=== PATIENT | male | born 1975 | race Caucasian/White ===

== ENCOUNTER 2019-11-22 12:56 | Emergency (ER) | payer OTHER ==
--- NOTE | 2019-11-22 13:40 | ER Document Report ---
ED General - General Chief Complaint: Chest Pain Stated Complaint: FEVER,NAUSEA Time Seen by Provider: 11/22/19 13:21 Primary Care Provider: NIKKO CRUZ MD [HONORARY] - Follow up in 1 month Mode of Arrival: Ambulatory Information source: Patient Notes: This 44-year-old male patient comes emergency room for evaluation of possible COVID symptoms. He reports his girlfriend tested positive last week, he was tested on 11/15/2019 and was negative. The following day he developed a sore throat. He reports that yesterday he developed fever and chills. He went back to the clinic today and his rapid COVID test was positive. He states he has had a little bit of a cough. He states this morning he had a little bit of left anterior chest pain and has also been having pains go down the left arm that will come and go. The arm pains are not related to the chest pains, but reports that the arm pains get quite severe but do not last very long. At the clinic today his blood pressure was 180/110 and they gave him a dose of clonidine and aspirin. He does not normally have elevated blood pressure. He is not short of breath. The patient reports that he takes Cosentyx for psoriatic arthritis. His last dose was 3 weeks ago, he is due to get his next dose next Wednesday 1 week from today. He does note that the itching of his legs has gone away, this will frequently occur when he gets sick with any sort of illness. - Related Data Allergies/Adverse Reactions: No Known Allergies Allergy (Verified 11/28/19 19:46) Past Medical History - General Information source: Patient - Social History Smoking Status: Former Smoker - Quit in March 2018. Cigarette use (# per day): No Chew tobacco use (# tins/day): No Smoking Education Provided: No Frequency of alcohol use: None Drug Abuse: None Occupation: Drives a truck for the [employer] Lives with: Spouse/Significant other - Lives with his girlfriend. Family History: Reviewed & Not Pertinent - Medical History Medical History: Other - Psoriatic arthritis Surgical Hx: Negative Review of Systems - Review of Systems Constitutional: Chills, Fever EENT: No symptoms reported Cardiovascular: See HPI, Chest pain Respiratory: See HPI, Cough Gastrointestinal: No symptoms reported Genitourinary: No symptoms reported Musculoskeletal: No symptoms reported Skin: No symptoms reported Hematologic/Lymphatic: No symptoms reported Neurological/Psychological: See HPI Physical Exam - Vital signs Vitals: Temp Pulse Resp BP Pulse Ox 99.1 F 107 H 16 150/103 H 99 11/22/19 13:13 11/22/19 13:13 11/22/19 13:13 11/22/19 13:13 11/22/19 13:13 Interpretation: Hypertensive, Febrile - General General appearance: Appears well, Alert In distress: None - HEENT Head: Normocephalic, Atraumatic Eyes: Normal Pupils: PERRL Neck: Normal - Respiratory Respiratory status: No respiratory distress Breath sounds: Normal - Cardiovascular Rhythm: Regular Heart sounds: Normal auscultation Murmur: No - Abdominal Inspection: Obese Distension: No distension Bowel sounds: Normal Tenderness: Nontender - Back Back: Normal - Extremities General upper extremity: Other - Psoriatic plaques on his proximal ulnar forearms General lower extremity: Normal inspection - Patient has his pants on, but has normal range of motion and no tenderness. - Neurological Neuro grossly intact: Yes - Psychological Associated symptoms: Normal affect, Normal mood - Skin Skin Temperature: Warm Skin Moisture: Dry Skin Color: Normal Notes: Patient does have psoriatic changes on the extensor surfaces of his proximal forearms. Course - Re-evaluation Re-evalutation: 11/22/19 16:58 The patient was evaluated during the global COVID-19 pandemic and that diagnosis was suspected/considered upon their initial presentation. Their evaluation, treatment and testing was consistent with current guidelines for patients who present with complaints or symptoms that may be related to COVID-19. 11/22/19 17:15 The patient began complaining of severe left arm pain again. It pain is to his medial arm from the axilla region down to the elbow. He was able to find that by lifting his arm above his head the pain would go away. I suspect that this may be a cervical radiculopathy. The patient's blood pressure is in the 145-150 range, he states that he may not have had his blood pressure checked in several years so he does not know if he could be hypertensive at this time. Given that he is most likely COVID positiv e, symptomatic, and running very high blood pressure this morning, I am going to prescribe a low-dose beta-andre for now. He will be unable to follow-up with primary care provider for at least 2 weeks or until he has recovered from this COVID infection. He is instructed to get a blood pressure cuff to check his blood pressures at home. - Vital Signs Vital signs: Temp Pulse Resp BP Pulse Ox 99.4 F 88 20 144/77 H 99 11/22/19 16:03 11/22/19 16:03 11/22/19 16:03 11/22/19 16:03 11/22/19 16:03 - Laboratory Result Diagrams: 11/22/19 13:30 11/22/19 13:30 Laboratory results interpreted by me: 11/22/19 11/22/19 11/22/19 13:30 13:30 16:55 RDW 14.2 H [place] % (Auto) 13.6 H Glucose 122 H Urine Protein 100 H Urine Urobilinogen 4.0 H Urine Ascorbic Acid 40 H - Diagnostic Test Radiology reviewed: Image reviewed, Reports reviewed - Chest x-ray does not show acute radiographic changes. - EKG Interpretation by Hi EKG shows normal: Sinus rhythm, [place], Intervals, QRS Complexes. abnormal: ST-T Waves - Diffuse T wave abnormalities suggesting ischemic changes. Rate: Normal - 94 Rhythm: NSR P Waves: LAE When compared to previous EKG there are: Previous EKG unavailable Additional EKG results interpreted by me: 11/22/19 16:56 Initial EKG suggested ischemic changes with diffuse abnormal T wave abnormalities. Repeat EKG done 2-1/2 hours later shows similar anterior and lateral leads T wave abnormalities. Serial troponin on the patient were negative. D-dimer was not elevated. Discharge - Discharge Clinical Impression: COVID-19, Viral syndrome, Cervical radiculopathy, High blood pressure Condition: Stable Disposition: HOME, SELF-CARE Instructions: COVID-19 Guidance for Persons Under Investigation Additional Instructions: Viral Syndrome(most likely COVID-19 virus): The physician has diagnosed a viral infection. Viruses not only cause "colds," but can cause many different symptoms including generalized aching, fever, headache, cough, diarrhea, nausea, vomiting, and fatigue. The treatment, for the most part, is simply relief of symptoms. This means that antibiotics are usually not given. Rest, fluids, pain medications and, occasionally, medication for the specific symptoms that are most bothersome will be prescribed. Use good handwashing to avoid passing the virus to others. Shared toys should be cleaned with disinfectant. Clean the toilets, sinks, and counter surfaces in bathrooms. Launder clothing in hot water. Contact the physician if you develop any new or unusual symptoms such as severe headache, stiff neck, high fever, chest pain, productive cough, or shortness of breath. You should be rechecked if you don't see marked improvement within seven to 10 days. Cervical Radiculopathy: Radiculopathy is irritation of a nerve. Sometimes this is called "pinched nerve." The pain can be sharp and stabbing, constant and dull, or burning in nature. The pain can occur in any area of the chest, shoulders, or arms. Sometimes the pain is provoked by coughing or moving. Radiculopathy can be caused by physical pressure on a nerve, such as a herniated disc or swollen joint in the spine. It can also be caused by viral infections within the nerve or by nerve damage due to diabetes or blood vessel disease. Radicular pain is treated with antiinflammatory medicine. Injections may help resistant cases, if we can identify a single nerve that's causing the pain. Surgery is usually not necessary. If symptoms do not improve with time, you may need additional testing, such as an MRI or EMG (electromyogram). Return if there is local weakness or numbness, shortness of breath, increasing pain, or other new symptoms. High Blood Pressure: When your blood pressure was taken today it was elevated. Pre-hypertension/Hypertension: The patient has been informed that they may have pre-hypertension or Hypertension based on a blood pressure reading in the emergency department. I recommend that the patient call the primary care provider listed on their discharge instructions or a physician of their choice this week to arrange follow up for further evaluation of possible pre-hypertens ion or Hypertension. Sometimes, stress or illness causes a temporary elevation of your blood press ure. We suggest that you get your blood pressure measured three more times during the next few days to see if this is more than a temporary abnormality. If your blood pressure is greater than 150/90 on each occasion, you must have treatment. Some simple things you can do to help are: If you have blood pressure medicine but aren't using it regularly, start taking it again. Get some aerobic exercise for at least 20 minutes on a daily basis. (See your doctor before beginning a new exercise program.) Eat a low-fat diet. Lose excess weight. Avoid salty foods and avoid adding salt to any of the foods you eat. Avoid diet pills, decongestants, "energizing" herbs, and other medicines that elevate blood pressure. If left untreated, hypertension greatly enhances your risk for developing heart disease and strokes. Please don't ignore this problem. We will start you on a blood pressure medication today, as your blood pressure had gotten quite high today, and it would not be practical to follow-up with anyone within the next 2 weeks for of your blood pressure. Your arm pain is most likely due to pinched nerves in your neck. Avoid extending your neck as that likely will make the pain worse. If you notice the pain coming on try bending your neck forward and putting her chin on your chest to see if that will ease the discomfort, otherwise lift her arm up in the air as you are doing here for relief. Your positive COVID test today was most likely accurate. You should quarantine at home for the next 2 weeks, then get repeat testing until you have tested negative. Follow-up with a primary care provider in a few weeks to recheck your blood pressure and determine if you should stay on blood pressure medication. You can also see your primary care provider about the pain in your arm if that continues to be a problem. RETURN TO THE EMERGENCY ROOM IF ANY NEW OR WORSENING SYMPTOMS. Prescriptions: Atenolol [Tenormin] 25 mg PO BID #60 tablet Referrals: NIKKO CRUZ MD [HONORARY] - Follow up in 1 month
[2019-11-22 14:01] LABS: BASOPHILS % (AUTO) 0.4 % (0-2); EOSINOPHILS % (AUTO) 0.6 % (0-6); HEMATOCRIT 45.6 % (37.9-51.0); HEMOGLOBIN 15.7 g/dL (13.5-17.0); LYMPHOCYTES % (AUTO) 28.7 % (13-45); MEAN CORPUSCULAR HEMOGLOBIN 28.4 pg (27.0-33.4); MEAN CORPUSCULAR HGB CONC 34.3 g/dL (32.0-36.0); MEAN CORPUSCULAR VOLUME 83 fl (80-97); MONOCYTES % (AUTO) 13.6 % (3-13); PLATELET COUNT 296 10^3/uL (150-450); RED BLOOD COUNT 5.51 10^6/uL (4.35-5.55); RED CELL DISTRIBUTION WIDTH 14.2 % (11.5-14.0); SEGMENTED NEUTROPHILS % (AUTO) 56.7 % (42-78); TOTAL CELLS COUNTED % (AUTO) 100 %; WHITE BLOOD COUNT 7.1 10^3/uL (4.0-10.5)
[2019-11-22 14:10] LABS: ALBUMIN 4.2 g/dL (3.5-5.0); ALKALINE PHOSPHATASE 71 U/L (38-126); ANION GAP 9 (5-19); ASPARTATE AMINO TRANSFERASE 33 U/L (17-59); BILIRUBIN,TOTAL 0.7 mg/dL (0.2-1.3); BLOOD UREA NITROGEN 11 mg/dL (7-20); CALCIUM 8.6 mg/dL (8.4-10.2); CARBON DIOXIDE 24 mmol/L (22-30); CHLORIDE 105 mmol/L (98-107); CREATINE KINASE 134 U/L (55-170); GLUCOSE 122 mg/dL (75-110); POTASSIUM 4.5 mmol/L (3.6-5.0); TOTAL PROTEIN 7.7 g/dL (6.3-8.2)
--- NOTE | 2019-11-22 14:25 | RADIOLOGY REPORT (SQ) ---
EXAM DESCRIPTION: CHEST SINGLE VIEW IMAGES COMPLETED DATE/TIME: 11/22/2019 1:08 pm REASON FOR STUDY: COVID + patient w/ mild cough and chest pain COMPARISON: None. EXAM PARAMETERS: NUMBER OF VIEWS: One view. TECHNIQUE: Single frontal radiographic view of the chest acquired. RADIATION DOSE: NA LIMITATIONS: None. FINDINGS: LUNGS AND PLEURA: No opacities, masses or pneumothorax. No pleural effusion. MEDIASTINUM AND HILAR STRUCTURES: No masses. Contour normal. HEART AND VASCULAR STRUCTURES: Heart normal in size. Normal vasculature. BONES: No acute findings. HARDWARE: None in the chest. OTHER: No other significant finding. IMPRESSION: NO ACUTE RADIOGRAPHIC FINDING IN THE CHEST. TECHNICAL DOCUMENTATION: JOB ID: [id number] 2010 [employer]- All Rights Reserved Reading location - IP/workstation name: [email or web address]
[2019-11-22 16:04] VITALS: BP 144/77
[2019-11-22 16:48] LABS: CREATINE KINASE MB 0.6 ng/mL (<4.55); TROPONIN I 0.013 ng/mL
[2019-11-22 17:17] LABS: APPEARANCE,URINE SLIGHTLY-CLOUDY; BILIRUBIN,URINE NEGATIVE (NEGATIVE); COLOR,URINE AMBER; GLUCOSE, URINE NEGATIVE (NEGATIVE); KETONES,URINE NEGATIVE (NEGATIVE); LEUKOCYTE ESTERASE,URINE NEGATIVE (NEGATIVE); NITRITE,URINE NEGATIVE (NEGATIVE); PROTEIN,URINE 100 mg/dL (NEGATIVE); URINE SPECIFIC GRAVITY 1.036
--- NOTE | 2019-11-23 09:42 | EKG REPORT ---
SEVERITY:- ABNORMAL ECG - SINUS RHYTHM PROBABLE LEFT ATRIAL ABNORMALITY CONSIDER ANTEROSEPTAL INFARCT ABNORMAL T, CONSIDER ISCHEMIA, DIFFUSE LEADS : Confirmed by: Adebayo Glover 23-Nov-2019 09:41:52
--- NOTE | 2019-11-23 09:42 | EKG REPORT ---
SEVERITY:- ABNORMAL ECG - SINUS RHYTHM ABNORMAL T, CONSIDER ISCHEMIA, LATERAL LEADS : Confirmed by: Adebayo Glover 23-Nov-2019 09:41:47
== END 2019-11-22 17:37 | disposition home or self-care (01) ==
LOC: ER 12:56
DX: U07.1 COVID-19 (principal); M54.12 Radiculopathy, cervical region; I10 Essential (primary) hypertension; R94.31 Abnormal electrocardiogram [ECG] [EKG]; R05 Cough; R50.9 Fever, unspecified; R07.9 Chest pain, unspecified; M79.602 Pain in left arm; L40.50 Arthropathic psoriasis, unspecified; Z79.899 Other long term (current) drug therapy; Z87.891 Personal history of nicotine dependence
CPT/HCPCS: 36415; 71045; 80053; 81001; 82550; 82553; 82728; 84484; 85025; 85379; 93005; 93010; 99285

== ENCOUNTER 2019-11-28 16:28 | Inpatient (IN) | payer OTHER ==
--- NOTE | 2019-11-28 17:39 | RADIOLOGY REPORT (SQ) ---
EXAM DESCRIPTION: CHEST SINGLE VIEW IMAGES COMPLETED DATE/TIME: 11/28/2019 5:27 pm REASON FOR STUDY: cough, covid + COMPARISON: 11/22/2019 EXAM PARAMETERS: NUMBER OF VIEWS: One view. TECHNIQUE: Single frontal radiographic view of the chest acquired. RADIATION DOSE: NA LIMITATIONS: None. FINDINGS: LUNGS AND PLEURA: The patient has a known history of COVID-19 disease. There are perihil ar ground-glass attenuated opacities more so on the left. These findings may be consistent with infi ltrates. No pneumothorax or pleural effusion. MEDIASTINUM AND HILAR STRUCTURES: Fullness in the mediastinal region more so on the right may be on the basis of lymphadenopathy. HEART AND VASCULAR STRUCTURES: Cardiomegaly. Normal vasculature. BONES: No acute findings. HARDWARE: None in the chest. OTHER: No other significant finding. IMPRESSION: 1. Bilateral perihilar ground-glass attenuated opacities, more so on the left may repre sent pneumonia consistent with the patient's known history of COVID 19 disease. These findings have developed since the prior examination dated 11/22/2019. 2. Fullness in the mediastinal region, more so on the right, may be on the basis of lymphadenopathy. 3. Cardiomegaly, stable finding. TECHNICAL DOCUMENTATION: JOB ID: [id number] 2010 [employer]- All Rights Reserved Reading location - IP/workstation name: [email or web address]
[2019-11-28] MEDS ORDERED: CEFTRIAXONE INJ 1000 MG VIAL IV ONE (17:53)
[2019-11-28] MEDS ORDERED: AZITHROMYCIN INJ 500 MG VIAL IV ONE (17:53)
[2019-11-28] MEDS ORDERED: DEXAMETHASONE SOD PHOS INJ 10 MG/1 ML VIAL IV ONE (17:54)
--- NOTE | 2019-11-28 17:58 | ER Document Report ---
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 His condition was stable at that time and he was sent out with a pending COVID nasal swab. This was subsequently reported as positive. He now returns today noting that over the past 2 to 3 days he is increasingly short of breath, intermittently coughing with no production of sputum and having some wheezing, nausea without vomiting, loss of appetite and myalgias. He reports intermittent subjective low-grade fever. Patient has a history of psoriatic arthritis. He is recently had some intermitt ent elevation of his blood pressure and had been advised to start a beta-andre but has failed to do so. Patient has quit smoking within the last 6 months. - Related Data Allergies/Adverse Reactions: No Known Allergies Allergy (Verified 11/22/19 14:01) Past Medical History - General Information source: Patient, [facility] Records - Social History Smoking Status: Former Smoker Chew tobacco use (# tins/day): No Drug Abuse: None Lives with: Family Family History: Reviewed & Not Pertinent Patient has homicidal ideation: No Musculoskeletal Medical History: Reports Hx Arthritis Surgical Hx: Negative Review of Systems - Review of Systems Notes: Constitutional: As per HPI. HENT: Negative for sore throat. Denies change in sense of taste or smell. Eyes: Negative for visual changes. Cardiovascular: Burning in chest when he coughs. Respiratory: As per HPI. Gastrointestinal: Anorexia. Nausea without vomiting or diarrhea. Genitourinary: Negative for dysuria. Musculoskeletal: Mild diffuse myalgias. Skin: Negative for rash. Neurological: Negative for headaches, focal weakness or numbness. 10 point ROS negative except as marked above and in HPI. Physical Exam - Vital signs Vitals: Resp BP Pulse Ox 14 139/83 H 95 11/28/19 16:28 11/28/19 16:28 11/28/19 16:28 - Notes Notes: GENERAL: Mildly obese middle-age male who is coughing and appears mildly dyspneic. SKIN: Mildly diaphoretic. Good turgor no rashes. HEAD: Normocephalic atraumatic. EYES: PERRLA. EOMI. Conjunctivae and sclerae clear. EARS: CANALS AND TMS CLEAR. NOSE: CLEAR. MOUTH: Moist mucosa. Good dentition. No stridor or edema. No drooling. NECK: Supple. No masses or thyromegaly. No adenopathy. Carotids 2+ without bruits. No JVD. BACK: Symmetrical without tenderness. CHEST: Mildly tachypneic with rattling cough and scattered faint wheezes and rhonchi bilaterally. O2 saturation 92% on room air. HEART: Regular rhythm. No murmur gallop or rub. ABDOMEN: Soft nontender without masses, organomegaly or rebound. Bowel sounds normally active. No bruits. GENITALIA: Deferred. EXTREMITIES: No edema. No calf tenderness. Cap refill less than 1.5 seconds. Dorsalis pedis and posterior tibial pulses 3+ and symmetrical. NEUROLOGICAL: GCS 15. Alert and oriented x3. Fluent speech. Cranial nerves II through XII intact. Sensorimotor and cerebellar normal. Normal tone. PSYCHIATRIC: Appropriate affect. Course - Re-evaluation Re-evalutation: 11/28/19 18:02 Labs are pending. Patient is now comfortable on 2 L of nasal O2. He presumably has COVID pneumonia. We are going to go ahead and provide coverage for communit y-acquired pneumonia with IV Rocephin and azithromycin. I have also started him on IV Decadron. We will present him to the hospitalist for admission to the inpatient service on low-flow supplemental oxygen. - Vital Signs Vital signs: Temp Pulse Resp BP Pulse Ox 99.1 F 80 23 H 137/73 H 94 11/28/19 16:35 11/28/19 16:35 11/28/19 16:35 11/28/19 16:35 11/28/19 16:35 - Laboratory Result Diagrams: 11/28/19 16:10 11/28/19 16:10 Laboratory results interpreted by me: 11/28/19 11/28/19 11/28/19 16:10 16:10 16:10 Hgb 13.4 L RDW 14.4 H D-Dimer 0.85 H Sodium 136.7 L - Diagnostic Test Radiology reviewed: Reports reviewed - Patchy groundglass infiltrates bilaterally with some mediastinal fullness consistent with adenopathy. Discharge - Discharge Clinical Impression: COVID-19 Pneumonia Qualifiers: Pneumonia type: due to unspecified organism Laterality: bilateral Lung location: unspecified part of lung Qualified Code(s): J18.9 - Pneumonia, unspecified organism Condition: Good Disposition: ADMITTED INPATIENT Admitting Provider: Flavia (Hospitalist) Unit Admitted: Medical Floor
[2019-11-28 18:04] LABS: ALBUMIN 3.8 g/dL (3.5-5.0); ALKALINE PHOSPHATASE 60 U/L (38-126); ANION GAP 9 (5-19); ASPARTATE AMINO TRANSFERASE 48 U/L (17-59); BILIRUBIN,DIRECT 0.4 mg/dL (0.0-0.4); BILIRUBIN,TOTAL 0.6 mg/dL (0.2-1.3); BLOOD UREA NITROGEN 8 mg/dL (7-20); CALCIUM 8.6 mg/dL (8.4-10.2); CARBON DIOXIDE 26 mmol/L (22-30); CHLORIDE 102 mmol/L (98-107); GLUCOSE 109 mg/dL (75-110); POTASSIUM 3.8 mmol/L (3.6-5.0)
[2019-11-28 18:13] LABS: ABSOLUTE LYMPHOCYTES (AUTO) 2.1 10^3/uL (0.5-4.7); ABSOLUTE MONOCYTES (AUTO) 0.5 10^3/uL (0.1-1.4); ABSOLUTE NEUT (AUTO) 3.2 10^3/uL (1.7-8.2); BASOPHILS % (AUTO) 0.3 % (0-2); EOSINOPHILS % (AUTO) 0.8 % (0-6); HEMOGLOBIN 13.4 g/dL (13.5-17.0); LYMPHOCYTES % (AUTO) 35.8 % (13-45); MEAN CORPUSCULAR HEMOGLOBIN 28.7 pg (27.0-33.4); MEAN CORPUSCULAR HGB CONC 34.5 g/dL (32.0-36.0); MEAN CORPUSCULAR VOLUME 83 fl (80-97); MONOCYTES % (AUTO) 8.7 % (3-13); PLATELET COUNT 369 10^3/uL (150-450); RED BLOOD COUNT 4.68 10^6/uL (4.35-5.55); RED CELL DISTRIBUTION WIDTH 14.4 % (11.5-14.0); SEGMENTED NEUTROPHILS % (AUTO) 54.4 % (42-78); TOTAL CELLS COUNTED % (AUTO) 100 %; WHITE BLOOD COUNT 5.9 10^3/uL (4.0-10.5)
[2019-11-28] MEDS ORDERED: MAGNESIUM HYDROXIDE SUSP 30 ML UDCUP PO PRN (19:39)
[2019-11-28] MEDS ORDERED: IPRATROPIUM/ALBUTEROL 0.5-2.5 MG/3 ML AMPUL NEB PRN (19:39)
[2019-11-28] MEDS ORDERED: ACETAMINOPHEN 325 MG TABLET PO PRN (19:39)
[2019-11-28] MEDS ORDERED: ONDANSETRON HCL INJ/PF 4 MG/2 ML SDV IV PRN (19:39)
[2019-11-28] MEDS ORDERED: PROMETHAZINE HCL INJ 25 MG/1 ML VIAL IV PRN (19:39)
[2019-11-28] MEDS ORDERED: OXYCODONE-ACETAMINOPHEN 5-325 MG TABLET PO PRN (19:39)
[2019-11-28] MEDS ORDERED: HYDRALAZINE HCL INJ/PF 20 MG/1 ML SDV IV PRN (19:51)
[2019-11-28] MEDS ORDERED: METOPROLOL TARTRATE PF/INJ 5 MG/5 ML SDV IV PRN (19:51)
[2019-11-28] MEDS ORDERED: MORPHINE SULFATE 10 MG/ML INJ IV PRN (19:52)
[2019-11-28] MEDS ORDERED: DEXAMETHASONE SOD PHOSPHATE INJ 4 MG/1 ML VIAL IV ONE (20:15)
--- NOTE | 2019-11-28 21:57 | PDOC H&P ---
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 Patient has a known exposure to his who was COVID-19 positive. Patient was tested by his PCP as outpatient and COVID-19 serology came back positive. In ED he was noted to have mildly elevated d-dimer otherwise electrolytes WNL. Hospitalist was consulted for admission. Past Medical History Musculoskeltal Medical History: Reports: Arthritis Social History Lives with: Family Smoking Status: Former Smoker Electronic Cigarette use?: No Family History Family History: Reviewed & Not Pertinent Parental Family History Reviewed: Yes Children Family History Reviewed: Yes Sibling(s) Family History Reviewed.: Yes Medication/Allergy Home Medications: Atenolol [Tenormin] 25 mg PO BID #60 tablet 11/22/19 Allergies/Adverse Reactions: No Known Allergies Allergy (Verified 11/28/19 19:46) Review of Systems Review of Systems: as per hpi Physical Exam Vital Signs: Temp Pulse Resp BP Pulse Ox 98.1 F 80 19 141/79 H 100 11/28/19 19:50 11/28/19 16:35 11/28/19 20:31 11/28/19 20:31 11/28/19 20:31 Intake & Output 11/27/19 11/28/19 11/29/19 06:59 06:59 06:59 Weight 103.3 kg General appearance: PRESENT: obese Head exam: PRESENT: atraumatic, normocephalic Respiratory exam: PRESENT: clear to auscultation genoveva. ABSENT: rales, rhonchi, wheezes Cardiovascular exam: PRESENT: RRR. ABSENT: diastolic murmur, rubs, systolic murmur GI/Abdominal exam: PRESENT: normal bowel sounds, soft. ABSENT: distended, guarding, mass, organolmegaly, rebound, tenderness Neurological exam: PRESENT: alert, awake, oriented to person, oriented to place, oriented to time, oriented to situation, CN II-XII grossly intact. ABSENT: motor sensory deficit Results Laboratory Results: 11/28/19 16:10 11/28/19 16:10 11/28/19 11/28/19 16:10 16:10 WBC 5.9 RBC 4.68 Hgb 13.4 L Hct 39.0 MCV 83 MCH 28.7 MCHC 34.5 RDW 14.4 H Plt Count 369 Seg Neutrophils % 54.4 Sodium 136.7 L Potassium 3.8 Chloride 102 Carbon Dioxide 26 Anion Gap 9 BUN 8 Creatinine 0.85 Est GFR ( Amer) > 60 Glucose 109 Calcium 8.6 Magnesium 2.2 Total Bilirubin 0.6 AST 48 Alkaline Phosphatase 60 Total Protein 7.0 Albumin 3.8 11/28/19 16:10 Troponin I < 0.012 Impressions: Chest X-Ray 11/28/19 16:40 IMPRESSION: 1. Bilateral perihilar ground-glass attenuated opacities, more so on the left may represent pneumonia consistent with the patient's known history of COVID 19 disease. These findings have developed since the prior examination dated 11/22/2019. 2. Fullness in the mediastinal region, more so on the right, may be on the basi s of lymphadenopathy. 3. Cardiomegaly, stable finding. Assessment and Plan - Diagnosis (1) Pneumonia due to COVID-19 virus Is this a current diagnosis for this admission?: Yes Plan: Known exposure as outpatient. COVID-19 serology as outpatient positive as per patient report. Complaining of shortness of breath, fatigue, myalgia, loss of appetite, nonproductive cough. CXR positive for bilateral perihilar groundglass attenuated opacities more so on the left may represent pneumonia consistent with COVID-19 disease. CBC, CMP, WNL. Vitals WNL. SPO2 WNL on RA. Admit to IMCU, empiric IV azithromycin, empiric IV ceftriaxone, IV dexamethasone, zinc sulfate, vitamin C, supplemental oxygen, duo nebs, PRN BiPAP. If worsening of symptoms will try to get Remdesivir from pharmacy and will also discuss effervescent plasma transfusion with patient. (2) Acute respiratory failure with hypoxia Is this a current diagnosis for this admission?: Yes Plan: As per problem #1. (3) Hypertension Is this a current diagnosis for this admission?: Yes Plan: Euvolemic. Normotensive. We will start on low-dose lisinopril adjust dosage as needed. (4) Obesity (BMI 30-39.9) Is this a current diagnosis for this admission?: Yes Plan: BMI 37.9. Diet and lifestyle modification recommended. Will obtain lipid panel, hemoglobin A1c and TSH. - Time Time Spent with patient: 35 or more minutes Medications reviewed and adjusted accordingly: Yes Anticipated Discharge Disposition: Home, Self Care Anticipated Discharge Timeframe: within 72 hours
[2019-11-28] MEDS ORDERED: AZITHROMYCIN 500 MG in DEXTROSE 5%-WATER 250 ML IV SCH (22:00)
[2019-11-28] MEDS ORDERED: ENOXAPARIN SODIUM INJ 150 MG/1 ML DISP.SYRIN SUBCUT SCH (22:00)
[2019-11-28] MEDS: TEMAZEPAM 7.5 MG CAPSULE PO SCH (23:04)
[2019-11-28] MEDS: DEXAMETHASONE SOD PHOSPHATE INJ 4 MG/1 ML VIAL IV SCH (23:05)
[2019-11-28] MEDS: NORMAL SALINE 1000 ML 1,000 ML IV PRN (23:06)
[2019-11-28] MEDS: LISINOPRIL 5 MG TABLET PO SCH (23:08)
[2019-11-29] MEDS: PANTOPRAZOLE SODIUM 20 MG TABLET.DR PO SCH (06:01)
[2019-11-29] MEDS: DEXAMETHASONE SOD PHOSPHATE INJ 4 MG/1 ML VIAL IV SCH ×3 (06:02→22:49)
[2019-11-29 07:12] LABS: APPEARANCE,URINE CLEAR; BILIRUBIN,URINE NEGATIVE (NEGATIVE); COLOR,URINE YELLOW; GLUCOSE, URINE NEGATIVE (NEGATIVE); KETONES,URINE NEGATIVE (NEGATIVE); LEUKOCYTE ESTERASE,URINE NEGATIVE (NEGATIVE); NITRITE,URINE NEGATIVE (NEGATIVE); PROTEIN,URINE 30 mg/dL (NEGATIVE); URINE SPECIFIC GRAVITY 1.015
[2019-11-29 07:18] LABS: ABSOLUTE MONOCYTES (AUTO) 0.2 10^3/uL (0.1-1.4); ABSOLUTE NEUT (AUTO) 2.3 10^3/uL (1.7-8.2); BASOPHILS % (AUTO) 0.4 % (0-2); EOSINOPHILS % (AUTO) 0.1 % (0-6); HEMATOCRIT 39.4 % (37.9-51.0); HEMOGLOBIN 13.8 g/dL (13.5-17.0); LYMPHOCYTES % (AUTO) 28.2 % (13-45); MEAN CORPUSCULAR HEMOGLOBIN 28.8 pg (27.0-33.4); MEAN CORPUSCULAR VOLUME 82 fl (80-97); MONOCYTES % (AUTO) 4.7 % (3-13); PLATELET COUNT 395 10^3/uL (150-450); RED BLOOD COUNT 4.79 10^6/uL (4.35-5.55); RED CELL DISTRIBUTION WIDTH 14.3 % (11.5-14.0); SEGMENTED NEUTROPHILS % (AUTO) 66.6 % (42-78); TOTAL CELLS COUNTED % (AUTO) 100 %; WHITE BLOOD COUNT 3.5 10^3/uL (4.0-10.5)
[2019-11-29 07:30] LABS: ALBUMIN 3.8 g/dL (3.5-5.0); ALKALINE PHOSPHATASE 64 U/L (38-126); ANION GAP 10 (5-19); ASPARTATE AMINO TRANSFERASE 44 U/L (17-59); BILIRUBIN,DIRECT 0.3 mg/dL (0.0-0.4); BILIRUBIN,TOTAL 0.5 mg/dL (0.2-1.3); BLOOD UREA NITROGEN 8 mg/dL (7-20); CALCIUM 8.6 mg/dL (8.4-10.2); CARBON DIOXIDE 24 mmol/L (22-30); CHLORIDE 105 mmol/L (98-107); CHOLESTEROL 165.08 mg/dL (0-200); GLUCOSE 170 mg/dL (75-110); TRIGLYCERIDES 210 mg/dL (<150)
[2019-11-29 07:41] LABS: DIRECT LDL 110 mg/dL (<100)
[2019-11-29 07:42] LABS: POTASSIUM 4.8 mmol/L (3.6-5.0)
[2019-11-29] MEDS: ASCORBIC ACID 500 MG TABLET PO SCH ×2 (09:29→17:27)
[2019-11-29] MEDS: LISINOPRIL 5 MG TABLET PO SCH (09:30)
[2019-11-29] MEDS: CHOLECALCIFEROL (D3) 1,000 UNIT (25 MCG) TABLET PO SCH (09:30)
[2019-11-29] MEDS: DOCUSATE SODIUM 100 MG CAPSULE PO SCH (09:30)
[2019-11-29] MEDS: ZINC SULFATE 220 MG CAPSULE PO SCH (09:30)
[2019-11-29] MEDS ORDERED: ASCORBIC ACID 500 MG TABLET PO SCH (10:00)
[2019-11-29] MEDS ORDERED: AZITHROMYCIN 500 MG in DEXTROSE 5%-WATER 250 ML IV SCH (10:00)
[2019-11-29] MEDS ORDERED: ENOXAPARIN SODIUM INJ 150 MG/1 ML DISP.SYRIN SUBCUT SCH (10:00)
--- NOTE | 2019-11-29 10:25 | EKG REPORT ---
SEVERITY:- ABNORMAL ECG - SINUS RHYTHM CONSIDER ANTEROSEPTAL INFARCT ABNORMAL T, CONSIDER ISCHEMIA, LATERAL LEADS : Confirmed by: Monika Aparicio MD 29-Nov-2019 10:24:11
[2019-11-29] MEDS: ALBUTEROL SULFATE HFA (90 MCG/PUFF) 8 GM MDI IH SCH ×2 (14:12→17:27)
--- NOTE | 2019-11-29 14:16 | PDOC PROGRESS REPORT ---
Subjective Progress Note for:: 11/29/19 Subjective:: Patient complains of loss of appetite, fatigue. He also admits to some shortness of breath. He states the shortness of breath only just started recently. His COVID-19 symptoms have also been present for 2 weeks now. Denies chest pain nausea vomiting. Reason For Visit: COVID-19, PNEUMONIA Physical Exam Vital Signs: Temp Pulse Resp BP Pulse Ox 98.3 F 83 18 141/77 H 98 11/29/19 11:13 11/29/19 11:13 11/29/19 11:13 11/29/19 11:13 11/29/19 11:13 Intake & Output 11/28/19 11/29/19 11/30/19 06:59 06:59 06:59 Intake Total 250 Balance 250 Weight 129.8 kg 129.8 kg General appearance: PRESENT: no acute distress, cooperative Neck exam: ABSENT: JVD Respiratory exam: PRESENT: clear to auscultation genoveva, symmetrical, unlabored. ABSENT: tachypnea, wheezes Cardiovascular exam: PRESENT: RRR, +S1, +S2. ABSENT: tachycardia GI/Abdominal exam: PRESENT: soft. ABSENT: rebound, rigid, tenderness Neurological exam: PRESENT: alert, awake, oriented to person, oriented to place, oriented to time Results Laboratory Results: 11/29/19 05:49 11/29/19 05:49 11/28/19 11/28/19 11/29/19 16:10 16:10 05:49 WBC 5.9 3.5 L RBC 4.68 4.79 Hgb 13.4 L 13.8 Hct 39.0 39.4 MCV 83 82 MCH 28.7 28.8 MCHC 34.5 35.0 RDW 14.4 H 14.3 H Plt Count 369 395 Seg Neutrophils % 54.4 66.6 Sodium 136.7 L Potassium 3.8 Chloride 102 Carbon Dioxide 26 Anion Gap 9 BUN 8 Creatinine 0.85 Est GFR ( Amer) > 60 Glucose 109 Calcium 8.6 Magnesium 2.2 Total Bilirubin 0.6 AST 48 Alkaline Phosphatase 60 Total Protein 7.0 Albumin 3.8 Triglycerides Cholesterol LDL Cholesterol Direct VLDL Cholesterol HDL Cholesterol Urine Color Urine Appearance Urine pH Ur Specific [place] Urine Protein Urine Glucose (UA) Urine Ketones Urine Blood Urine Nitrite Ur Leukocyte Esterase Urine WBC (Auto) Urine RBC (Auto) 11/29/19 11/29/19 05:49 06:00 WBC RBC Hgb Hct MCV MCH MCHC RDW Plt Count Seg Neutrophils % Sodium 138.7 Potassium 4.8 D Chloride 105 Carbon Dioxide 24 Anion Gap 10 BUN 8 Creatinine 0.61 Est GFR ( Amer) > 60 Glucose 170 H Calcium 8.6 Magnesium 2.3 Total Bilirubin 0.5 AST 44 Alkaline Phosphatase 64 Total Protein 7.0 Albumin 3.8 Triglycerides 210 H Cholesterol 165.08 LDL Cholesterol Direct 110 H VLDL Cholesterol 42.0 H HDL Cholesterol 27 L Urine Color YELLOW Urine Appearance CLEAR Urine pH 6.0 Ur Specific [place] 1.015 Urine Protein 30 H Urine Glucose (UA) NEGATIVE Urine Ketones NEGATIVE Urine Blood NEGATIVE Urine Nitrite NEGATIVE Ur Leukocyte Esterase NEGATIVE Urine WBC (Auto) 0 Urine RBC (Auto) 1 11/28/19 16:10 Troponin I < 0.012 Impressions: Chest X-Ray 11/28/19 16:40 IMPRESSION: 1. Bilateral perihilar ground-glass attenuated opacities, more so on the left may represent pneumonia consistent with the patient's known history of COVID 19 disease. These findings have developed since the prior examination dated 11/22/2019. 2. Fullness in the mediastinal region, more so on the right, may be on the basis of lymphadenopathy. 3. Cardiomegaly, stable finding. Assessment and Plan - Diagnosis (1) Pneumonia due to COVID-19 virus Is this a current diagnosis for this admission?: Yes Plan: Tested positive outpatient with his PCP at [facility] about a week ago. However seems to have developed dyspnea on exertion only 11/28/2019 which prompted the health department to ask him to call 911. Chest x-ray shows bilateral pneumonia Continue on azithromycin for 5 days total duration We will continue ceftriaxone for now Continue multivitamins and zinc supplements. Currently, patient is known in hypoxic respiratory failure as he was only placed on 2 L nasal cannula for comfort and has actually not desatted on room air. SPO2 now on room air is 98%. I will leave the dexamethasone for today but will likely discontinue tomorrow. Continue IV fluid hydration and continue to encourage patient to eat adequately (2) Hypertension Is this a current diagnosis for this admission?: Yes Plan: Euvolemic. Was noted to be quite hypertensive initially and started on low-dose lisinopril. I will switch to amlodipine and monitor BP closely. (3) Obesity (BMI 30-39.9) Is this a current diagnosis for this admission?: Yes Plan: Dietary and lifestyle modification will help with his dyslipidemia. Hold off on starting on statin. Hemoglobin A1c is normal. - Time Time Spent with patient: 15-24 minutes Anticipated Discharge Disposition: Home, Self Care Anticipated Discharge Timeframe: within 24 hours
[2019-11-29] MEDS ORDERED: CEFTRIAXONE 1 GM/D5W RTU 1 GM/50 ML RTUPB IV SCH (18:00)
[2019-11-29] MEDS ORDERED: AZITHROMYCIN 250 MG in DEXTROSE 5%-WATER 250 ML IV SCH (22:00)
[2019-11-29] MEDS: TEMAZEPAM 7.5 MG CAPSULE PO SCH (22:49)
[2019-11-30] MEDS: NORMAL SALINE 1000 ML 1,000 ML IV PRN (00:50)
[2019-11-30 02:14] LABS: APPEARANCE,URINE SLIGHTLY-CLOUDY; BILIRUBIN,URINE NEGATIVE (NEGATIVE); COLOR,URINE YELLOW; GLUCOSE, URINE NEGATIVE (NEGATIVE); KETONES,URINE NEGATIVE (NEGATIVE); LEUKOCYTE ESTERASE,URINE NEGATIVE (NEGATIVE); NITRITE,URINE NEGATIVE (NEGATIVE); PROTEIN,URINE 30 mg/dL (NEGATIVE); URINE SPECIFIC GRAVITY 1.031; UROBILINOGEN,URINE NEGATIVE mg/dL (<2.0)
[2019-11-30 02:15] LABS: ADD MANUAL MICROSCOPIC YES
[2019-11-30] MEDS: DEXAMETHASONE SOD PHOSPHATE INJ 4 MG/1 ML VIAL IV SCH (05:13)
[2019-11-30] MEDS: PANTOPRAZOLE SODIUM 20 MG TABLET.DR PO SCH (05:16)
[2019-11-30] MEDS: ALBUTEROL SULFATE HFA (90 MCG/PUFF) 8 GM MDI IH SCH ×3 (05:30→12:09)
[2019-11-30] MEDS ORDERED: ONDANSETRON HCL INJ/PF 4 MG/2 ML SDV IV PRN (08:30)
[2019-11-30] MEDS ORDERED: PROMETHAZINE HCL INJ 25 MG/1 ML VIAL IV PRN (08:30)
[2019-11-30] MEDS: DOCUSATE SODIUM 100 MG CAPSULE PO SCH (09:57)
[2019-11-30] MEDS: CHOLECALCIFEROL (D3) 1,000 UNIT (25 MCG) TABLET PO SCH (09:57)
[2019-11-30] MEDS: ASCORBIC ACID 500 MG TABLET PO SCH (09:58)
[2019-11-30] MEDS ORDERED: AMLODIPINE BESYLATE 5 MG TABLET PO SCH (10:00)
[2019-11-30] MEDS ORDERED: ENOXAPARIN SODIUM INJ 40 MG/0.4 ML DISP.SYRIN SUBCUT SCH (10:00)
[2019-11-30] MEDS: ZINC SULFATE 220 MG CAPSULE PO SCH (10:39)
--- NOTE | 2019-11-30 14:31 | PDOC DISCHARGE SUMMARY ---
Impression - Admit/DC Date/PCP Admission Date/Primary Care Provider: 11/28/19 18:48 Discharge Date: 11/30/19 - Discharge Diagnosis (1) Pneumonia due to COVID-19 virus Is this a current diagnosis for this admission?: Yes (2) Post-infection fatigue Is this a current diagnosis for this admission?: Yes (3) Hypertension Is this a current diagnosis for this admission?: Yes (4) Obesity (BMI 30-39.9) Is this a current diagnosis for this admission?: Yes - Additional Information Discharge Diet: Regular Discharge Activity: Energy Conservation, Slowly Increase Activity Referrals: NIKKO CRUZ MD [HONORARY] - Prescriptions: Azithromycin 250 mg PO DAILY 4 Days #4 tablet Albuterol Sulfate [Ventolin Hfa 8 gm Mdi (1 Mdi/ER Disp)] 2 puff IH Q6HP PRN #1 inhaler PRN Reason: Ascorbic Acid [Vitamin C] 2,000 mg PO DAILY #20 tablet Cholecalciferol (Vitamin D3) [Vitamin D3 1000 Unit Tablet] 2,000 unit PO DAILY 10 Days #20 tablet Zinc Sulfate [Zinc-220 Capsule] 220 mg PO DAILY 10 Days #10 capsule Home Medications: Atenolol [Tenormin] 25 mg PO BID #60 tablet 11/22/19 Albuterol Sulfate [Ventolin Hfa 8 gm Mdi (1 Mdi/ER Disp)] 2 puff IH Q6HP PRN #1 inhaler 11/30/19 Ascorbic Acid [Vitamin C] 2,000 mg PO DAILY #20 tablet 11/30/19 Azithromycin 250 mg PO DAILY 4 Days #4 tablet 11/30/19 Cholecalciferol (Vitamin D3) [Vitamin D3 1000 Unit Tablet] 2,000 unit PO DAILY 10 Days #20 tablet 11/30/19 Zinc Sulfate [Zinc-220 Capsule] 220 mg PO DAILY 10 Days #10 capsule 11/30/19 History of Present Illiness History of Present Illness: According to admitting provider: THADDEUS ODELL is a 44 year old male former smoker with past medical history of hypertension who is a batch mixing truck driver by profession, presenting to ED complaining worsening shortness of breath, loss of appetite, nonproductive cough, nonbloody diarrhea, worsening myalgia and fatigue. Patient has a known exposure to his who was COVID-19 positive. Patient was tested by his PCP as outpatient and COVID-19 serology came back positive. In ED he was noted to have mildly elevated d-dimer otherwise electrolytes WNL. Hospitalist was consulted for admission. Hospital Course Hospital Course: Patient was admitted to the hospital for treatment of COVID-19 pneumonia. Chest x-ray revealed no pneumonia. Patient states he had tested positive as outpatient. He had been referred to the ER by the health department who on the phone with him and acknowledged that he felt out of breath following ambulation. In the ER, patient was put on oxygen for comfort but actually has been satting with SPO2 98% to 100% on room air throughout the course of his admission. He never was in hypoxic respiratory failure. Intermittently during the hospitalization, he was also placed on nasal cannula only for comfort not because of hypoxia. His main problem has been excessive fatigue/weakness which is secondary to his COVID-19 infection. His vitals have remained stable and has had no fevers throughout his stay. He was started on azithromycin which she will be taking for 5-day course. He was initially started on dexamethasone which will be discontinued upon discharge as he is not hypoxic. He will be discharged with vitamin C, vitamin D, and zinc sulfate and albuterol inhaler. This morning, ambulatory pulse ox was done on room air and patient maintained at 100%. At this point, he is safe to be discharged home. He has been instructed to limit his level of activity and to ensure that he does a lot of resting and give his self time to recuperate and regain his energy. Physical Exam Vital Signs: Temp Pulse Resp BP Pulse Ox 98.3 F 74 16 133/59 H 100 11/30/19 12:10 11/30/19 12:10 11/30/19 12:10 11/30/19 12:10 11/30/19 12:10 Intake & Output 11/29/19 11/30/19 12/01/19 06:59 06:59 06:59 Intake Total 250 1250 Output Total 150 Balance 250 1100 Weight 129.8 kg 130 kg General appearance: PRESENT: no acute distress, cooperative Neck exam: ABSENT: JVD Respiratory exam: PRESENT: crackles - Mild dry, symmetrical, unlabored. ABSENT: tachypnea, wheezes Cardiovascular exam: PRESENT: RRR, +S1, +S2. ABSENT: tachycardia GI/Abdominal exam: PRESENT: soft. ABSENT: rebound, rigid, tenderness Musculoskeletal exam: PRESENT: ambulatory Neurological exam: PRESENT: alert, awake, oriented to person, oriented to place, oriented to time Results Laboratory Results: WBC 3.5 10^3/uL (4.0-10.5) L 11/29/19 05:49 RBC 4.79 10^6/uL (4.35-5.55) 11/29/19 05:49 Hgb 13.8 g/dL (13.5-17.0) 11/29/19 05:49 Hct 39.4 % (37.9-51.0) 11/29/19 05:49 MCV 82 fl (80-97) 11/29/19 05:49 MCH 28.8 pg (27.0-33.4) 11/29/19 05:49 MCHC 35.0 g/dL (32.0-36.0) 11/29/19 05:49 RDW 14.3 % (11.5-14.0) H 11/29/19 05:49 Plt Count 395 10^3/uL (150-450) 11/29/19 05:49 Lymph % (Auto) 28.2 % (13-45) 11/29/19 05:49 [place] % (Auto) 4.7 % (3-13) 11/29/19 05:49 Eos % (Auto) 0.1 % (0-6) 11/29/19 05:49 Baso % (Auto) 0.4 % (0-2) 11/29/19 05:49 Absolute Neuts (auto) 2.3 10^3/uL (1.7-8.2) 11/29/19 05:49 Absolute Lymphs (auto) 1.0 10^3/uL (0.5-4.7) 11/29/19 05:49 Absolute Monos (auto) 0.2 10^3/uL (0.1-1.4) 11/29/19 05:49 Absolute Eos (auto) 0.0 10^3/uL (0.0-0.6) 11/29/19 05:49 Absolute Basos (auto) 0.0 10^3/uL (0.0-0.2) 11/29/19 05:49 Seg Neutrophils % 66.6 % (42-78) 11/29/19 05:49 D-Dimer 0.28 ug/mL (0.00-0.50) 11/30/19 04:24 Sodium 138.7 mmol/L (137-145) 11/29/19 05:49 Potassium 4.8 mmol/L (3.6-5.0) D 11/29/19 05:49 Chloride 105 mmol/L (98-107) 11/29/19 05:49 Carbon Dioxide 24 mmol/L (22-30) 11/29/19 05:49 Anion Gap 10 (5-19) 11/29/19 05:49 BUN 8 mg/dL (7-20) 11/29/19 05:49 Creatinine 0.61 mg/dL (0.52-1.25) 11/29/19 05:49 Est GFR ( Amer) > 60 (>60) 11/29/19 05:49 Est GFR (MDRD) Non-Af > 60 (>60) 11/29/19 05:49 Glucose 170 mg/dL (75-110) H 11/29/19 05:49 Hemoglobin A1c % 5.7 % (4.7-6.0) 11/29/19 05:49 Calcium 8.6 mg/dL (8.4-10.2) 11/29/19 05:49 Magnesium 2.3 mg/dL (1.6-2.3) 11/29/19 05:49 Total Bilirubin 0.5 mg/dL (0.2-1.3) 11/29/19 05:49 Direct Bilirubin 0.3 mg/dL (0.0-0.4) 11/29/19 05:49 Neonat Total Bilirubin Not Reportable 11/29/19 05:49 Neonat Direct Bilirubin Not Reportable 11/29/19 05:49 Neonat Indirect Bili Not Reportable 11/29/19 05:49 AST 44 U/L (17-59) 11/29/19 05:49 ALT 40 U/L (<50) 11/29/19 05:49 Alkaline Phosphatase 64 U/L (38-126) 11/29/19 05:49 Troponin I < 0.012 ng/mL 11/28/19 16:10 Total Protein 7.0 g/dL (6.3-8.2) 11/29/19 05:49 Albumin 3.8 g/dL (3.5-5.0) 11/29/19 05:49 Triglycerides 210 mg/dL (<150) H 11/29/19 05:49 Cholesterol 165.08 mg/dL (0-200) 11/29/19 05:49 LDL Cholesterol Direct 110 mg/dL (<100) H 11/29/19 05:49 VLDL Cholesterol 42.0 mg/dL (10-31) H 11/29/19 05:49 HDL Cholesterol 27 mg/dL (>40) L 11/29/19 05:49 Urine Color YELLOW 11/30/19 01:00 Urine Appearance SLIGHTLY-CLOUDY 11/30/19 01:00 Urine pH 6.0 (5.0-9.0) 11/30/19 01:00 Ur Specific [place] 1.031 11/30/19 01:00 Urine Protein 30 mg/dL (NEGATIVE) H 11/30/19 01:00 Urine Glucose (UA) NEGATIVE mg/dL (NEGATIVE) 11/30/19 01:00 Urine Ketones NEGATIVE mg/dL (NEGATIVE) 11/30/19 01:00 Urine Blood NEGATIVE (NEGATIVE) 11/30/19 01:00 Urine Nitrite NEGATIVE (NEGATIVE) 11/30/19 01:00 Urine Bilirubin NEGATIVE (NEGATIVE) 11/30/19 01:00 Urine Urobilinogen NEGATIVE mg/dL (<2.0) 11/30/19 01:00 Ur Leukocyte Esterase NEGATIVE (NEGATIVE) 11/30/19 01:00 Urine WBC (Auto) 0 /HPF 11/29/19 06:00 Urine RBC (Auto) 1 /HPF 11/29/19 06:00 U Hyaline Cast (Auto) 1 /LPF 11/29/19 06:00 Urine WBC 1-5 /HPF 11/30/19 01:00 Ur Squamous Epith Cells MODERATE /HPF 11/30/19 01:00 Squamous Epi Cells Auto <1 /HPF 11/29/19 06:00 Urine Mucus 1+ 11/30/19 01:00 Urine Mucus (Auto) RARE /LPF 11/29/19 06:00 Urine Ascorbic Acid 40 (NEGATIVE) H 11/30/19 01:00 11/28/19 16:10 Troponin I < 0.012 Impressions: Chest X-Ray 11/28/19 16:40 IMPRESSION: 1. Bilateral perihilar ground-glass attenuated opacities, more so on the left may represent pneumonia consistent with the patient's known history of COVID 19 disease. These findings have developed since the prior examination dated 11/22/2019. 2. Fullness in the mediastinal region, more so on the right, may be on the basi s of lymphadenopathy. 3. Cardiomegaly, stable finding. Plan Time Spent: Greater than 30 Minutes Stroke Is this a Stroke Patient?: No Acute Heart Failure - Is this a Heart Failure Patient?: No
[2019-11-30 14:42] VITALS: BP 123/56
== END 2019-11-30 15:33 | disposition home or self-care (01) | DRG 177 ==
LOC: ER 16:28 → EH 18:48 → 3N 22:00
PROVIDERS: ADMIT Internal Medicine; ATTEND Internal Medicine
DX: U07.1 COVID-19 (principal); J12.89 Other viral pneumonia; J96.01 Acute respiratory failure with hypoxia; I10 Essential (primary) hypertension; E66.9 Obesity, unspecified; Z20.828 Contact with and (suspected) exposure to other viral communicable diseases; Z68.37 Body mass index [BMI] 37.0-37.9, adult
CPT/HCPCS: 36415; 71045; 80053; 80061; 81001; 83036; 83735; 84484; 85025; 85379; 87040; 87077; 87150; 87186; 93005; 93010; 94660; 96365; 99285; J0456; J0696; J1100; J1650; J2550; J3490; J7030; J7060